=== PATIENT | female | born 1930 | race Asian ===

== ENCOUNTER 2017-05-13 15:49 | Inpatient (IN) | payer MEDICARE, MEDICAID ==
[~2017-05-13] VITALS: Ht 124.5 cm; Wt 46.3 kg
[~2017-05-13 15:49] MED LIST: ALBU18HF PO; ANTI1CAP5 PO; GABA-827 PO; LATA2.5D3 EACHEYE; LEVO250T8 PO; LEVO25TA4 PO; LISI2.5T PO; LOVA10TA PO; TRAZ100T15 PO
[2017-05-13] MEDS ORDERED: PANTOPRAZOLE 80 MG in SODIUM CHLORIDE 0.9% 50 ML IVPB ONE (16:03)
[2017-05-13] MEDS ORDERED: PANTOPRAZOLE 80 MG in SODIUM CHLORIDE 0.9% 100 ML IV SCH (16:03)
[2017-05-13] MEDS ORDERED: SODIUM CHLORIDE 0.9% 1,000 ML IV ONE (16:03)
[2017-05-13] MEDS ORDERED: SODIUM CHLORIDE FLUSH 10ML SYR IVF ONE (16:30)
[2017-05-13] MEDS ORDERED: PLEASE ENTER HEIGHT AND WEIGHT MC SCH (16:30)
[2017-05-13] MEDS ORDERED: PLEASE ENTER ALLERGIES MC SCH (16:30)
[2017-05-13] MEDS ORDERED: CEFTRIAXONE PMX 1GM/50ML 50 ML IV ONE (16:30)
[2017-05-13 17:13] LABS: BASOPHILS # (AUTO) 0.05 x10^3/uL (0-0.1); BASOPHILS % (AUTO) 0 % (0-1); EOSINOPHILS % (AUTO) 0 % (1-7); LYMPHOCYTES # (AUTO) 0.62 x10^3/uL (1-3.4); LYMPHOCYTES % (AUTO) 4 % (22-44); MD NO; MEAN CORPUSCULAR HEMOGLOBIN 31.2 pg (27.0-34.8); MEAN CORPUSCULAR VOLUME 94.6 fL (80-100); MEAN PLATELET VOLUME 9.3 fL (7.4-10.4); MONOCYTES # (AUTO) 1.42 x10^3/uL (0.2-0.8); MONOCYTES % (AUTO) 9 % (2-9); NEUTROPHILS # (AUTO) 14.48 x10^3/uL (1.8-6.8); NEUTROPHILS % (AUTO) 87 % (42-75); PLATELET COUNT 204 x10^3/uL (130-400)
[2017-05-13 17:14] LABS: INTERNATIONAL NORMALIZED RATIO 1.03 (0.93-1.1); PROTHROMBIN TIME 10.6 Seconds (9.6-11.5)
[2017-05-13 17:19] LABS: ALANINE AMINOTRANSFERASE 32 U/L (12-78); ALBUMIN 3.1 g/dL (3.4-5.0); ANION GAP 11 mmol/L (5-15); CALCIUM 8.7 mg/dL (8.5-10.1); CHLORIDE 108 mmol/L (98-107); CREATININE 2.84 mg/dL (0.55-1.02)
[2017-05-13 17:22] LABS: CULTURE INDICATED? YES; MICROSCOPIC INDICATED
[2017-05-13 17:46] LABS: ALKALINE PHOSPHATASE 99 U/L (45-117); BILIRUBIN,TOTAL 1.1 mg/dL (0.2-1.0); CREATINE KINASE, TOTAL 1949 U/L (26-192); TOTAL PROTEIN 6.7 g/dL (6.4-8.2)
[2017-05-13] MEDS ORDERED: SODIUM CHLORIDE 0.9%, 500ML IVBOLUS ONE (18:00)
[2017-05-13] MEDS ORDERED: GABA600T2 PO (18:20)
[2017-05-13] MEDS ORDERED: LOSA50TA6 PO (18:24)
[2017-05-13] MEDS ORDERED: ACETAMINOPHEN 325 MG TABLET PO PRN (18:30)
[2017-05-13] MEDS ORDERED: CEFTRIAXONE PMX 1GM/50ML 50 ML ONE (19:52)
[2017-05-13] MEDS ORDERED: ALBUTEROL SULFATE 2.5 MG/3 ML NPPB SCH (21:00)
[2017-05-13] MEDS: LOVASTATIN 20 MG TABLET PO SCH (21:00)
[2017-05-13] MEDS: D5%-0.45NACL+KCL 20MEQ 1,000 ML IV SCH (22:43)
[2017-05-13 22:46] VITALS: BP 97/59
[2017-05-13 22:49] LABS: ALBUMIN 2.5 g/dL (3.4-5.0); ANION GAP 11 mmol/L (5-15); CHLORIDE 112 mmol/L (98-107); CREATININE 2.12 mg/dL (0.55-1.02)
[2017-05-13] MEDS ORDERED: SODIUM CHLORIDE 0.9% 1,000ML IVBOLUS ONE (23:00)
[2017-05-13] MEDS ORDERED: PHARMACOKINETIC MONITORING MC PRN (23:45)
[2017-05-14] MEDS ORDERED: VANCOMYCIN PER PHARMACY MC PRN
[2017-05-14] MEDS ORDERED: VANCOMYCIN 600 MG in SODIUM CHLORIDE 0.9% 100 ML IV ONE (01:00)
[2017-05-14 03:38] VITALS: BP 97/58
[2017-05-14] MEDS ORDERED: CEFTRIAXONE PMX 1GM/50ML 50 ML IV SCH (05:00)
[2017-05-14] MEDS: CEFTRIAXONE 1,000 MG in DEXTROSE 5% 50 ML IVPB SCH (05:01)
[2017-05-14 06:27] LABS: BASOPHILS % (AUTO) 0 % (0-1); EOSINOPHILS # (AUTO) 0.01 x10^3/uL (0-0.4); EOSINOPHILS % (AUTO) 0 % (1-7); LYMPHOCYTES # (AUTO) 0.56 x10^3/uL (1-3.4); LYMPHOCYTES % (AUTO) 5 % (22-44); MD NO; MEAN CORPUSCULAR HEMOGLOBIN 30.8 pg (27.0-34.8); MEAN CORPUSCULAR HGB CONC 32.8 g/dL (32.4-35.8); MEAN PLATELET VOLUME 8.9 fL (7.4-10.4); MONOCYTES # (AUTO) 0.85 x10^3/uL (0.2-0.8); MONOCYTES % (AUTO) 8 % (2-9); NEUTROPHILS # (AUTO) 8.95 x10^3/uL (1.8-6.8); NEUTROPHILS % (AUTO) 86 % (42-75); PLATELET COUNT 148 x10^3/uL (130-400); RED BLOOD COUNT 4.14 x10^6/uL (3.82-5.3); RED CELL DISTRIBUTION WIDTH 15.3 % (9.6-15.2)
[2017-05-14 06:38] LABS: ALBUMIN 2.3 g/dL (3.4-5.0); ANION GAP 9 mmol/L (5-15); CALCIUM 7.8 mg/dL (8.5-10.1); CHLORIDE 117 mmol/L (98-107)
[2017-05-14 06:52] LABS: ALANINE AMINOTRANSFERASE 26 U/L (12-78); ALKALINE PHOSPHATASE 74 U/L (45-117); BILIRUBIN,TOTAL 0.7 mg/dL (0.2-1.0); CREATINE KINASE, TOTAL 1578 U/L (26-192); CREATININE 1.36 mg/dL (0.55-1.02); TOTAL PROTEIN 5.5 g/dL (6.4-8.2)
[2017-05-14] MEDS: morphine SULFATE 10 MG/ML, 1ML IVPush PRN ×3 (07:29→23:07)
[2017-05-14] MEDS ORDERED: ACETAMINOPHEN 650 MG/20.3 ML UDC PO PRN (07:30)
[2017-05-14] MEDS: LEVOTHYROXINE 25 MCG TABLET PO SCH (09:00)
[2017-05-14 09:43] VITALS: BP 82/43
[2017-05-14] MEDS ORDERED: PINK LADY ENEMA 1,000 ML PR PRN (13:30)
[2017-05-14 15:14] VITALS: BP 91/54
[2017-05-14] MEDS: D5%-0.45NACL+KCL 20MEQ 1,000 ML IV SCH (15:37)
[2017-05-14 15:54] LABS: OCCULT BLOOD NEGATIVE (NEGATIVE)
[2017-05-14 18:50] VITALS: BP 91/50
[2017-05-14] MEDS: LOVASTATIN 20 MG TABLET PO SCH (20:23)
[2017-05-15] MEDS: D5%-0.45NACL+KCL 20MEQ 1,000 ML IV SCH ×2 (00:56→19:59)
[2017-05-15 02:30] VITALS: BP 119/79
[2017-05-15] MEDS: CEFTRIAXONE 1,000 MG in DEXTROSE 5% 50 ML IVPB SCH (05:08)
[2017-05-15] MEDS: LEVOTHYROXINE 25 MCG TABLET PO SCH (06:46)
[2017-05-15 07:02] VITALS: BP 149/70
[2017-05-15] MEDS: BISACODYL 10 MG SUPP PR PRN (07:38)
[2017-05-15] MEDS: morphine SULFATE 10 MG/ML, 1ML IVPush PRN ×3 (07:38→21:30)
[2017-05-15 13:09] VITALS: BP 137/74
[2017-05-15] MEDS ORDERED: VANCOMYCIN 800 MG in SODIUM CHLORIDE 0.9% 250 ML IV SCH (14:30)
[2017-05-15 20:28] VITALS: BP 145/82
[2017-05-15] MEDS: LOVASTATIN 20 MG TABLET PO SCH (21:30)
[2017-05-16 01:25] VITALS: BP 147/84
[2017-05-16] MEDS: morphine SULFATE 10 MG/ML, 1ML IVPush PRN ×4 (02:01→12:22)
[2017-05-16 02:52] LABS: CREATININE 0.45 mg/dL (0.55-1.02)
[2017-05-16] MEDS: D5%-0.45NACL+KCL 20MEQ 1,000 ML IV SCH ×2 (05:41→20:17)
[2017-05-16] MEDS: LEVOTHYROXINE 25 MCG TABLET PO SCH (06:09)
[2017-05-16 07:39] LABS: ANION GAP 5 mmol/L (5-15); CALCIUM 7.3 mg/dL (8.5-10.1); CHLORIDE 114 mmol/L (98-107)
[2017-05-16 07:40] VITALS: BP 144/86
[2017-05-16] MEDS: BISACODYL 10 MG SUPP PR PRN (08:57)
[2017-05-16] MEDS ORDERED: SODIUM CHLORIDE 0.45% 1,000 ML IV SCH (10:30)
[2017-05-16 12:45] VITALS: BP 155/86
[2017-05-16] MEDS ORDERED: MAGNESIUM SULFATE PMX 2GM/50ML 50 ML IV ONE (14:30)
[2017-05-16] MEDS ORDERED: SODIUM CHLORIDE 0.45% 1,000 ML IV ONE (14:30)
[2017-05-16 15:00] LABS: ALBUMIN 1.8 g/dL (3.4-5.0); ANION GAP 7 mmol/L (5-15); CALCIUM 7.8 mg/dL (8.5-10.1); CHLORIDE 116 mmol/L (98-107)
[2017-05-16 15:12] LABS: ALANINE AMINOTRANSFERASE 29 U/L (12-78); ALKALINE PHOSPHATASE 64 U/L (45-117); BILIRUBIN,TOTAL 0.5 mg/dL (0.2-1.0); CREATININE 0.36 mg/dL (0.55-1.02); TOTAL PROTEIN 5.6 g/dL (6.4-8.2)
[2017-05-16] MEDS: SODIUM PHOSPHATE 20 MMOL in SODIUM CHLORIDE 0.9% 500 ML IV SCH ×2 (17:01→22:58)
[2017-05-16 19:36] VITALS: BP 154/77
[2017-05-16] MEDS: LOVASTATIN 20 MG TABLET PO SCH ×2 (20:17→20:27)
[2017-05-17 01:12] VITALS: BP 161/84
[2017-05-17] MEDS: MORPHINE SULFATE 4 MG/ML, 1ML IVPush PRN ×3 (01:53→06:33)
[2017-05-17 05:54] LABS: ALBUMIN 1.9 g/dL (3.4-5.0); ANION GAP 7 mmol/L (5-15); CHLORIDE 111 mmol/L (98-107)
[2017-05-17 05:59] LABS: ALANINE AMINOTRANSFERASE 31 U/L (12-78); ALKALINE PHOSPHATASE 58 U/L (45-117); BILIRUBIN, DIRECT 0.1 mg/dL (0.1-0.2); BILIRUBIN,INDIRECT 0.5 mg/dL (0.0-2.0); BILIRUBIN,TOTAL 0.6 mg/dL (0.2-1.0); CREATININE 0.31 mg/dL (0.55-1.02)
[2017-05-17] MEDS: LEVOTHYROXINE 25 MCG TABLET PO SCH (06:00)
[2017-05-17 07:03] VITALS: BP 153/83
[2017-05-17] MEDS: morphine SULFATE 10 MG/ML, 1ML IVPush PRN (10:51)
[2017-05-17 12:57] VITALS: BP 154/80
[2017-05-17] MEDS: D5%-0.45NACL+KCL 20MEQ 1,000 ML IV SCH ×2 (13:00→13:20)
[2017-05-17] MEDS ORDERED: HALOPERIDOL 5 MG/ML IM PRN (18:30)
[2017-05-17 20:50] VITALS: BP 161/86
[2017-05-17] MEDS: LOVASTATIN 20 MG TABLET PO SCH (21:00)
[2017-05-17] MEDS: GABAPENTIN 300 MG CAPSULE PO SCH (21:00)
[2017-05-17] MEDS: TRAZODONE 100MG TABLET PO SCH (21:00)
[2017-05-17] MEDS ORDERED: POTASSIUM PHOSPHATE 22 MEQ in SODIUM CHLORIDE 0.9% 500 ML IV ONE (22:30)
[2017-05-17] MEDS ORDERED: MAGNESIUM SULFATE PMX 2GM/50ML 50 ML IV ONE (22:30)
[2017-05-18 01:31] VITALS: BP 154/82
[2017-05-18] MEDS: morphine SULFATE 10 MG/ML, 1ML IVPush PRN (05:03)
[2017-05-18 05:58] LABS: ANION GAP 7 mmol/L (5-15); CALCIUM 7.7 mg/dL (8.5-10.1); CHLORIDE 110 mmol/L (98-107)
[2017-05-18 05:59] LABS: CREATININE 0.31 mg/dL (0.55-1.02)
[2017-05-18 06:00] LABS: BASOPHILS # (AUTO) 0.01 x10^3/uL (0-0.1); BASOPHILS % (AUTO) 0 % (0-1); EOSINOPHILS # (AUTO) 0.27 x10^3/uL (0-0.4); EOSINOPHILS % (AUTO) 5 % (1-7); LYMPHOCYTES # (AUTO) 0.75 x10^3/uL (1-3.4); LYMPHOCYTES % (AUTO) 14 % (22-44); MD NO; MEAN CORPUSCULAR HEMOGLOBIN 32.6 pg (27.0-34.8); MEAN CORPUSCULAR HGB CONC 33.9 g/dL (32.4-35.8); MEAN CORPUSCULAR VOLUME 96.1 fL (80-100); MEAN PLATELET VOLUME 7.8 fL (7.4-10.4); MONOCYTES # (AUTO) 0.92 x10^3/uL (0.2-0.8); MONOCYTES % (AUTO) 17 % (2-9); NEUTROPHILS # (AUTO) 3.38 x10^3/uL (1.8-6.8); NEUTROPHILS % (AUTO) 64 % (42-75); PLATELET COUNT 166 x10^3/uL (130-400); RED BLOOD COUNT 3.68 x10^6/uL (3.82-5.3); RED CELL DISTRIBUTION WIDTH 14.6 % (9.6-15.2)
[2017-05-18] MEDS: LEVOTHYROXINE 25 MCG TABLET PO SCH (06:00)
[2017-05-18] MEDS: D5%-0.45NACL+KCL 20MEQ 1,000 ML IV SCH ×3 (06:47→19:37)
[2017-05-18 07:27] VITALS: BP 122/81
[2017-05-18 07:30] VITALS: BP 164/84
[2017-05-18] MEDS: GABAPENTIN 300 MG CAPSULE PO SCH ×2 (08:34→17:54)
[2017-05-18 14:40] VITALS: BP 124/72
[2017-05-18] MEDS ORDERED: SODIUM PHOSPHATE 20 MMOL in SODIUM CHLORIDE 0.9% 500 ML IV ONE (15:00)
[2017-05-18] MEDS: TRAZODONE 100MG TABLET PO SCH (19:37)
[2017-05-18] MEDS: LOVASTATIN 20 MG TABLET PO SCH (19:38)
[2017-05-18 19:45] VITALS: BP 111/71
[2017-05-19 01:47] VITALS: BP 107/66
[2017-05-19] MEDS: GABAPENTIN 300 MG CAPSULE PO SCH ×3 (01:51→17:29)
[2017-05-19] MEDS: morphine SULFATE 10 MG/ML, 1ML IVPush PRN ×2 (02:04→11:26)
[2017-05-19] MEDS: D5%-0.45NACL+KCL 20MEQ 1,000 ML IV SCH ×2 (05:23→17:30)
[2017-05-19] MEDS: LEVOTHYROXINE 25 MCG TABLET PO SCH (05:24)
[2017-05-19 05:54] LABS: ANION GAP 7 mmol/L (5-15); CALCIUM 7.1 mg/dL (8.5-10.1); CHLORIDE 111 mmol/L (98-107)
[2017-05-19 05:56] LABS: CREATININE 0.38 mg/dL (0.55-1.02)
[2017-05-19 07:40] VITALS: BP 126/71
[2017-05-19] MEDS ORDERED: MAGNESIUM SULFATE PMX 2GM/50ML 50 ML IV ONE (11:30)
[2017-05-19 15:20] VITALS: BP 116/65
[2017-05-19] MEDS ORDERED: POTASSIUM PHOSPHATE 44 MEQ in SODIUM CHLORIDE 0.9% 500 ML IV ONE (18:30)
[2017-05-19 18:40] VITALS: BP 142/80
[2017-05-19] MEDS: TRAZODONE 100MG TABLET PO SCH (20:47)
[2017-05-19] MEDS: LOVASTATIN 20 MG TABLET PO SCH (20:49)
[2017-05-20 04:58] VITALS: BP 135/74
[2017-05-20] MEDS: GABAPENTIN 300 MG CAPSULE PO SCH ×4 (05:20→20:42)
[2017-05-20] MEDS: LEVOTHYROXINE 25 MCG TABLET PO SCH (05:20)
[2017-05-20] MEDS: D5%-0.45NACL+KCL 20MEQ 1,000 ML IV SCH ×3 (05:20→15:00)
[2017-05-20 05:50] LABS: ANION GAP 8 mmol/L (5-15); CALCIUM 7.7 mg/dL (8.5-10.1); CHLORIDE 114 mmol/L (98-107); CREATININE 0.33 mg/dL (0.55-1.02)
[2017-05-20 07:25] VITALS: BP 139/69
[2017-05-20 13:36] VITALS: BP 149/93
[2017-05-20 19:48] VITALS: BP 123/58
[2017-05-20] MEDS: TRAZODONE 100MG TABLET PO SCH (20:42)
[2017-05-20] MEDS: LOVASTATIN 20 MG TABLET PO SCH (20:42)
[2017-05-21 01:23] VITALS: BP 142/72
[2017-05-21] MEDS: LEVOTHYROXINE 25 MCG TABLET PO SCH (05:29)
[2017-05-21 05:54] LABS: ANION GAP 6 mmol/L (5-15); CALCIUM 7.8 mg/dL (8.5-10.1); CHLORIDE 110 mmol/L (98-107); CREATININE 0.39 mg/dL (0.55-1.02)
[2017-05-21 07:38] VITALS: BP 139/76
[2017-05-21 07:46] VITALS: BP 134/81
[2017-05-21] MEDS: morphine SULFATE 10 MG/ML, 1ML IVPush PRN (07:55)
[2017-05-21] MEDS: GABAPENTIN 300 MG CAPSULE PO SCH ×3 (07:59→20:18)
[2017-05-21] MEDS: D5%-0.45NACL+KCL 20MEQ 1,000 ML IV SCH (09:06)
[2017-05-21 11:24] LABS: ANION GAP 5 mmol/L (5-15); CALCIUM 7.6 mg/dL (8.5-10.1); CHLORIDE 108 mmol/L (98-107); CREATININE 0.55 mg/dL (0.55-1.02)
[2017-05-21 11:43] LABS: MICROSCOPIC AUTO
[2017-05-21 12:46] VITALS: BP 145/73
[2017-05-21] MEDS ORDERED: CEFTRIAXONE PMX 1GM/50ML 50 ML IV SCH (17:30)
[2017-05-21 20:15] VITALS: BP 140/72
[2017-05-21] MEDS: LOVASTATIN 20 MG TABLET PO SCH (20:18)
[2017-05-21] MEDS: TRAZODONE 100MG TABLET PO SCH (20:18)
[2017-05-22 02:57] VITALS: BP 108/52
[2017-05-22] MEDS: LEVOTHYROXINE 25 MCG TABLET PO SCH (05:31)
[2017-05-22 06:03] LABS: CHLORIDE 109 mmol/L (98-107)
[2017-05-22 06:09] LABS: ANION GAP 7 mmol/L (5-15); CALCIUM 8.1 mg/dL (8.5-10.1); CREATININE 0.44 mg/dL (0.55-1.02)
[2017-05-22] MEDS ORDERED: MAGNESIUM SULFATE PMX 2GM/50ML 50 ML IV ONE (07:00)
[2017-05-22 07:15] VITALS: BP 125/68
[2017-05-22] MEDS: GABAPENTIN 300 MG CAPSULE PO SCH ×3 (08:05→23:15)
[2017-05-22 10:34] LABS: CLOSTRIDIUM DIFFICILE ANTIGEN NEGATIVE; CLOSTRIDIUM DIFFICILE TOXIN NEGATIVE (Negative)
[2017-05-22 13:30] VITALS: BP 123/61
[2017-05-22] MEDS: D5%-0.45NACL+KCL 20MEQ 1,000 ML IV SCH (15:56)
[2017-05-22] MEDS: CEFTRIAXONE 1,000 MG in DEXTROSE 5% 50 ML IV SCH (17:40)
[2017-05-22 19:55] VITALS: BP 125/50
[2017-05-22] MEDS: LOVASTATIN 20 MG TABLET PO SCH (21:00)
[2017-05-22] MEDS: TRAZODONE 100MG TABLET PO SCH (23:15)
[2017-05-22] MEDS: LACTOBACILLUS 1GM/ PACKET PO SCH (23:16)
[2017-05-23 01:57] VITALS: BP 103/49
[2017-05-23] MEDS: LEVOTHYROXINE 25 MCG TABLET PO SCH (05:27)
[2017-05-23 05:55] LABS: ANION GAP 7 mmol/L (5-15); CALCIUM 7.9 mg/dL (8.5-10.1); CHLORIDE 110 mmol/L (98-107); CREATININE 0.41 mg/dL (0.55-1.02)
[2017-05-23 07:46] VITALS: BP 112/57
[2017-05-23] MEDS: GABAPENTIN 300 MG CAPSULE PO SCH ×3 (08:27→20:45)
[2017-05-23] MEDS: LACTOBACILLUS 1GM/ PACKET PO SCH ×3 (08:27→20:45)
[2017-05-23 14:17] VITALS: BP 129/60
[2017-05-23] MEDS: D5%-0.45NACL+KCL 20MEQ 1,000 ML IV SCH (16:18)
[2017-05-23] MEDS: CEFTRIAXONE 1,000 MG in DEXTROSE 5% 50 ML IV SCH (16:20)
[2017-05-23 19:59] VITALS: BP 123/55
[2017-05-23] MEDS: TRAZODONE 100MG TABLET PO SCH (20:45)
[2017-05-23] MEDS: LOVASTATIN 20 MG TABLET PO SCH (20:45)
[2017-05-24 02:29] VITALS: BP 113/53
[2017-05-24] MEDS: LEVOTHYROXINE 25 MCG TABLET PO SCH (05:45)
[2017-05-24 08:04] VITALS: BP 126/67
[2017-05-24] MEDS: GABAPENTIN 300 MG CAPSULE PO SCH ×3 (10:56→21:02)
[2017-05-24] MEDS: LACTOBACILLUS 1GM/ PACKET PO SCH ×3 (10:56→21:02)
[2017-05-24 12:11] LABS: ANION GAP 5 mmol/L (5-15); CALCIUM 8.1 mg/dL (8.5-10.1); CHLORIDE 110 mmol/L (98-107)
[2017-05-24 12:12] LABS: CREATININE 0.45 mg/dL (0.55-1.02)
[2017-05-24 15:18] VITALS: BP 145/72
[2017-05-24 19:51] VITALS: BP 101/52
[2017-05-24] MEDS: LOVASTATIN 20 MG TABLET PO SCH (21:00)
[2017-05-24] MEDS: TRAZODONE 100MG TABLET PO SCH (21:02)
[2017-05-24] MEDS: D5%-0.45NACL+KCL 20MEQ 1,000 ML IV SCH (21:02)
[2017-05-25 03:39] VITALS: BP 116/61
[2017-05-25] MEDS: LEVOTHYROXINE 25 MCG TABLET PO SCH (06:36)
[2017-05-25 07:57] VITALS: BP 113/59
[2017-05-25] MEDS: GABAPENTIN 300 MG CAPSULE PO SCH ×3 (10:03→21:16)
[2017-05-25] MEDS: LACTOBACILLUS 1GM/ PACKET PO SCH ×3 (10:03→21:16)
[2017-05-25 10:11] LABS: ANION GAP 6 mmol/L (5-15); CALCIUM 7.9 mg/dL (8.5-10.1); CHLORIDE 108 mmol/L (98-107); CREATININE 0.54 mg/dL (0.55-1.02)
[2017-05-25 14:37] VITALS: BP 116/51
[2017-05-25 18:48] VITALS: BP 99/50
[2017-05-25] MEDS: TRAZODONE 100MG TABLET PO SCH (21:16)
[2017-05-25] MEDS: LOVASTATIN 20 MG TABLET PO SCH (21:16)
[2017-05-26 00:08] VITALS: BP 96/53
[2017-05-26] MEDS: LACTOBACILLUS 1GM/ PACKET PO SCH ×4 (05:50→20:22)
[2017-05-26] MEDS: LEVOTHYROXINE 25 MCG TABLET PO SCH (05:50)
[2017-05-26] MEDS ORDERED: morphine SULFATE 10 MG/ML, 1ML IVPush PRN (07:30)
[2017-05-26 07:34] VITALS: BP 115/53
[2017-05-26] MEDS ORDERED: LOPERAMIDE 1 MG/5 ML, 10ML UDC PO ONE (08:00)
[2017-05-26] MEDS ORDERED: ENOXAPARIN 40 MG/0.4 ML SQ SCH (08:00)
[2017-05-26] MEDS ORDERED: LOPERAMIDE 2 MG CAPSULE PO PRN (08:00)
[2017-05-26] MEDS: GABAPENTIN 300 MG CAPSULE PO SCH ×3 (10:10→20:22)
[2017-05-26 13:42] VITALS: BP 94/46
[2017-05-26 18:55] VITALS: BP 110/62
[2017-05-26] MEDS: LOVASTATIN 20 MG TABLET PO SCH (20:22)
[2017-05-26] MEDS: TRAZODONE 100MG TABLET PO SCH (20:22)
[2017-05-27 00:50] VITALS: BP 106/51
[2017-05-27] MEDS: LACTOBACILLUS 1GM/ PACKET PO SCH ×4 (05:11→21:46)
[2017-05-27] MEDS: LEVOTHYROXINE 25 MCG TABLET PO SCH (05:11)
[2017-05-27 07:34] VITALS: BP 98/42
[2017-05-27] MEDS: GABAPENTIN 300 MG CAPSULE PO SCH ×3 (08:17→21:46)
[2017-05-27] MEDS: ENOXAPARIN 30 MG/0.3 ML SQ SCH (10:00)
[2017-05-27 13:25] VITALS: BP 96/46
[2017-05-27] MEDS ORDERED: ONDANSETRON ODT 4 MG PO PRN (14:30)
[2017-05-27] MEDS: LOVASTATIN 20 MG TABLET PO SCH (21:00)
[2017-05-27 21:04] VITALS: BP 103/52
[2017-05-27] MEDS: TRAZODONE 100MG TABLET PO SCH (21:46)
[2017-05-28 02:43] VITALS: BP 102/48
[2017-05-28] MEDS: LEVOTHYROXINE 25 MCG TABLET PO SCH (05:33)
[2017-05-28] MEDS: LACTOBACILLUS 1GM/ PACKET PO SCH ×4 (05:33→22:07)
[2017-05-28 08:49] LABS: TUBERCULIN 48 HOUR READ 0 mm (< 5)
[2017-05-28] MEDS: GABAPENTIN 300 MG CAPSULE PO SCH ×3 (09:24→22:06)
[2017-05-28] MEDS: ENOXAPARIN 30 MG/0.3 ML SQ SCH (09:25)
[2017-05-28 13:56] VITALS: BP 126/54
[2017-05-28 18:43] VITALS: BP 102/51
[2017-05-28] MEDS: LOVASTATIN 20 MG TABLET PO SCH (21:00)
[2017-05-28] MEDS: TRAZODONE 100MG TABLET PO SCH (22:06)
[2017-05-29 01:20] VITALS: BP 109/70
[2017-05-29] MEDS: LACTOBACILLUS 1GM/ PACKET PO SCH ×4 (05:17→20:48)
[2017-05-29] MEDS: LEVOTHYROXINE 25 MCG TABLET PO SCH (05:20)
[2017-05-29 07:28] VITALS: BP 99/52
[2017-05-29] MEDS: GABAPENTIN 300 MG CAPSULE PO SCH ×3 (09:34→20:48)
[2017-05-29] MEDS: ENOXAPARIN 30 MG/0.3 ML SQ SCH (09:35)
[2017-05-29 13:16] VITALS: BP 104/57
[2017-05-29 18:36] VITALS: BP 123/63
[2017-05-29] MEDS: LOVASTATIN 20 MG TABLET PO SCH (20:48)
[2017-05-29] MEDS: TRAZODONE 100MG TABLET PO SCH (20:48)
[2017-05-30 01:08] VITALS: BP 105/52
[2017-05-30 05:03] LABS: CREATININE 0.52 mg/dL (0.55-1.02)
[2017-05-30] MEDS: LACTOBACILLUS 1GM/ PACKET PO SCH ×4 (06:39→23:28)
[2017-05-30] MEDS: LEVOTHYROXINE 25 MCG TABLET PO SCH (06:39)
[2017-05-30 07:50] VITALS: BP 95/54
[2017-05-30] MEDS: ENOXAPARIN 30 MG/0.3 ML SQ SCH (09:17)
[2017-05-30] MEDS: GABAPENTIN 300 MG CAPSULE PO SCH ×3 (09:18→23:28)
[2017-05-30 13:34] VITALS: BP 100/46
[2017-05-30 20:00] VITALS: BP 100/54
[2017-05-30] MEDS: TRAZODONE 100MG TABLET PO SCH (23:28)
[2017-05-31 01:29] VITALS: BP 116/63
[2017-05-31 07:19] VITALS: BP 98/41
[2017-05-31] MEDS: GABAPENTIN 300 MG CAPSULE PO SCH ×3 (08:29→22:01)
[2017-05-31] MEDS: LACTOBACILLUS 1GM/ PACKET PO SCH ×4 (08:29→22:01)
[2017-05-31] MEDS: LEVOTHYROXINE 25 MCG TABLET PO SCH (08:29)
[2017-05-31] MEDS: ENOXAPARIN 30 MG/0.3 ML SQ SCH (08:30)
[2017-05-31 13:40] VITALS: BP 92/55
[2017-05-31 16:59] VITALS: BP 113/58
[2017-05-31 19:32] LABS: MICROSCOPIC INDICATED
[2017-05-31 19:46] VITALS: BP 109/50
[2017-05-31 20:06] LABS: CULTURE INDICATED? NO
[2017-05-31] MEDS: TRAZODONE 100MG TABLET PO SCH (22:01)
[2017-06-01 02:06] VITALS: BP 117/60
[2017-06-01] MEDS: LEVOTHYROXINE 25 MCG TABLET PO SCH (05:57)
[2017-06-01] MEDS: LACTOBACILLUS 1GM/ PACKET PO SCH ×2 (05:57→12:21)
[2017-06-01 07:41] VITALS: BP 97/55
[2017-06-01] MEDS: ENOXAPARIN 30 MG/0.3 ML SQ SCH (10:00)
[2017-06-01] MEDS: GABAPENTIN 300 MG CAPSULE PO SCH (10:00)
[2017-06-01 12:56] VITALS: BP 101/51
[2017-06-01] MEDS ORDERED: GABA300C10 PO (13:32)
[2017-06-01] MEDS ORDERED: ACID1GRA3 PO (13:32)
[2017-06-01] MEDS ORDERED: BISA10SU65 PR (13:32)
== END 2017-06-01 15:05 | disposition hospice, home (50) | DRG 871 ==
LOC: ED 15:58 → EDIP 17:50 → 3NW 21:32
PROVIDERS: ADMIT Family Medicine; ATTEND Family Medicine
PROC: 0T9B70Z Drainage of Bladder with Drainage Device, Via Natural or Artificial Opening (ICD-10-PCS; principal; 2017-05-13)
PROC: 02HV33Z Insertion of Infusion Device into Superior Vena Cava, Percutaneous Approach (ICD-10-PCS; 2017-05-15)
PROC: B5181ZA Fluoroscopy of Superior Vena Cava using Low Osmolar Contrast, Guidance (ICD-10-PCS; 2017-05-15)
PROC: 0T9B70Z Drainage of Bladder with Drainage Device, Via Natural or Artificial Opening (ICD-10-PCS; 2017-05-31)
DX: A41.9 Sepsis, unspecified organism (principal); G93.41 Metabolic encephalopathy; L89.152 Pressure ulcer of sacral region, stage 2; E46 Unspecified protein-calorie malnutrition; N17.9 Acute kidney failure, unspecified; K52.1 Toxic gastroenteritis and colitis; R64 Cachexia; G62.9 Polyneuropathy, unspecified; E87.5 Hyperkalemia; M62.82 Rhabdomyolysis; K56.49 Other impaction of intestine; K92.1 Melena; E86.0 Dehydration; R65.20 Severe sepsis without septic shock; J44.9 Chronic obstructive pulmonary disease, unspecified; R62.7 Adult failure to thrive; I10 Essential (primary) hypertension; E03.9 Hypothyroidism, unspecified; E78.5 Hyperlipidemia, unspecified; K56.41 Fecal impaction; R09.02 Hypoxemia; Z51.5 Encounter for palliative care; Z66 Do not resuscitate; M19.90 Unspecified osteoarthritis, unspecified site; Z68.29 Body mass index [BMI] 29.0-29.9, adult; T36.95XA Adverse effect of unspecified systemic antibiotic, initial encounter; Y92.89 Other specified places as the place of occurrence of the external cause; R73.9 Hyperglycemia, unspecified; K44.9 Diaphragmatic hernia without obstruction or gangrene
CPT/HCPCS: 36415; 36569; 51702; 70450; 71010; 71045; 72125; 74018; 74176; 76937; 77001; 80048; 80053; 80076; 81001; 82040; 82140; 82272; 82550; 82565; 82607; 83605; 83735; 84100; 84439; 84443; 84481; 85025; 85610; 86580; 86850; 86900; 87040; 87070; 87077; 87086; 87186; 87205; 87324; 93005; 96365; 96366; 96368; J0696; J1650; J3370; Q0162; C1751; C9113; J2270; J3475; J3480; J7030; J7040; J7050